=== PATIENT | female | born 1980 | race Caucasian/White ===

== ENCOUNTER 2024-02-27 09:54 | Outpatient (CLI) | payer BC, SELFPAY ==
[2024-02-29 22:57] LABS: Varicella-Zoster Virus Source Vesicle; Varicella-Zoster Virus by PCR Detected
== END 2024-02-27 09:55 | disposition home or self-care (01) ==
LOC: NFLDUCREF 09:55
PROVIDERS: Visit Provider Nurse Practitioner
DX: R21 Rash and other nonspecific skin eruption (principal)
CPT/HCPCS: 86787